=== PATIENT | female | born 1975 | race African-American/Black ===

== ENCOUNTER 2017-02-15 18:20 | Emergency (ER) | payer MEDICAID ==
[~2017-02-15] VITALS: Ht 162.6 cm; Wt 100.0 kg
[~2017-02-15 18:20] MED LIST: AMLO2.5T45; ASPI-1159 PO; PREN-88; VIT D
[2017-02-15] MEDS ORDERED: SODIUM CHLORIDE 0.9% 1,000 ML IV ONE (18:32)
[2017-02-15 19:15] LABS: BASOPHILS % 0.7 % (0.0-2.0); EOSINOPHILS % 1.2 % (0.0-5.0); HEMATOCRIT. 36.9 % (36.0-48.0); HEMOGLOBIN. 12.4 g/dL (12.0-16.0); LYMPHOCYTES % 38.7 % (20.0-50.0); MEAN CORPUSCULAR VOLUME 83.5 fL (81.0-99.0); MEAN PLATELET VOLUME 7.4 fl (7.4-10.4); MONOCYTES % 5.5 % (2.0-8.0); NEUTROPHILS % 53.9 % (40.0-76.0); PLATELET 303 x1000/uL (130-400); RED BLOOD CELL COUNT 4.41 mill/uL (4.2-5.4); RED CELL DISTRIBUTION WIDTH 13.5 % (11.6-14.6)
[2017-02-15 19:16] LABS: CHLORIDE 101 mEq/L (98-107)
[2017-02-15 19:22] LABS: CARBON DIOXIDE 29 mEq/L (21-32)
[2017-02-15 19:24] LABS: HCG SCREEN NEGATIVE
[2017-02-15] MEDS ORDERED: POTASSIUM CHLORIDE 20MEQ TABLET SR PO ONE (19:30)
[2017-02-15 21:27] VITALS: BP 117/73
== END 2017-02-15 21:32 | disposition home or self-care (01) ==
LOC: ER 18:22
DX: E87.6 Hypokalemia (principal); J45.909 Unspecified asthma, uncomplicated; I10 Essential (primary) hypertension; Z98.890 Other specified postprocedural states; Z79.82 Long term (current) use of aspirin
CPT/HCPCS: 36415; 80048; 84703; 85025; 93005; 96360; 99285; J7030; Z7610

== ENCOUNTER 2017-08-01 19:08 | Emergency (ER) | payer MEDICAID, OTHER ==
[~2017-08-01] VITALS: Ht 162.6 cm; Wt 95.0 kg
[2017-08-01] MEDS ORDERED: ALBU2.5V13 IH (19:15)
[2017-08-01] MEDS ORDERED: METHYLPREDNISOLONE SOD SUCC 125 MG/2 ML VIAL IV STA (20:44)
[2017-08-01] MEDS ORDERED: IPRATROPIUM BROMIDE (0.02%) 0.5MG/2.5ML NEB HHN STA (20:44)
[2017-08-01 21:01] LABS: BASOPHILS % 0.5 % (0.0-2.0); EOSINOPHILS % 1.3 % (0.0-5.0); HEMATOCRIT. 35.5 % (36.0-48.0); HEMOGLOBIN. 11.6 g/dL (12.0-16.0); LYMPHOCYTES % 45.1 % (20.0-50.0); MEAN CORPUSCULAR HEMOGLOBIN 27.6 pg (28.0-32.0); MEAN CORPUSCULAR VOLUME 84.5 fL (81.0-99.0); MEAN PLATELET VOLUME 6.8 fl (7.4-10.4); MONOCYTES % 5.8 % (2.0-8.0); NEUTROPHILS % 47.3 % (40.0-76.0); PLATELET 311 x1000/uL (130-400); RED CELL DISTRIBUTION WIDTH 13.7 % (11.6-14.6)
[2017-08-01 21:19] LABS: CARBON DIOXIDE 29 mEq/L (21-32); CHLORIDE 104 mEq/L (98-107); TROPONIN I < 0.02 ng/mL (0.00-0.04)
[2017-08-01 21:27] LABS: PROTHROMBIN TIME 10.1 sec (9.4-11.6)
[2017-08-01] MEDS: ALBUTEROL (0.083%) 2.5MG/3ML NEB HHN SCH ×3 (21:30→22:37)
[2017-08-02 00:50] VITALS: BP 136/81
== END 2017-08-02 01:00 | disposition home or self-care (01) ==
LOC: ER 19:08
DX: J45.901 Unspecified asthma with (acute) exacerbation (principal); R00.0 Tachycardia, unspecified; I10 Essential (primary) hypertension; Z79.82 Long term (current) use of aspirin; Z98.890 Other specified postprocedural states
CPT/HCPCS: 36415; 71010; 80053; 83880; 84484; 85025; 85610; 93005; 94640; 96374; 99285; J2930; J7611; Z7610

== ENCOUNTER 2017-11-07 08:37 | Emergency (ER) | payer MEDICAID ==
[~2017-11-07] VITALS: Ht 160 cm; Wt 98.0 kg
[~2017-11-07 08:37] MED LIST changes: +ALBU2.5V13 IH
[2017-11-07] MEDS ORDERED: ALBUTEROL (0.083%) 2.5MG/3ML NEB HHN STA (12:03)
[2017-11-07] MEDS ORDERED: IPRATROPIUM BROMIDE (0.02%) 0.5MG/2.5ML NEB HHN STA (12:03)
[2017-11-07 13:50] VITALS: BP 119/69
== END 2017-11-07 13:50 | disposition home or self-care (01) ==
LOC: ER 08:47
DX: H66.93 Otitis media, unspecified, bilateral (principal); J45.909 Unspecified asthma, uncomplicated; I10 Essential (primary) hypertension; Z79.82 Long term (current) use of aspirin; R05 Cough
CPT/HCPCS: 71045; 81025; 87804; 94640; 99285; J7611

== ENCOUNTER 2018-06-28 10:19 | Emergency (ER) | payer MEDICAID ==
[~2018-06-28] VITALS: Ht 167.6 cm; Wt 92.0 kg
[2018-06-28 11:43] LABS: BASOPHILS % 0.3 % (0.0-2.0); EOSINOPHILS % 0.9 % (0.0-5.0); HEMOGLOBIN. 12.7 g/dL (12.0-16.0); MEAN CORPUSCULAR HEMOGLOBIN 28.3 pg (28.0-32.0); MEAN CORPUSCULAR VOLUME 84.8 fL (81.0-99.0); MEAN PLATELET VOLUME 7.3 fl (7.4-10.4); MONOCYTES % 3.9 % (2.0-8.0); NEUTROPHILS % 51.9 % (40.0-76.0); PLATELET 352 x1000/uL (130-400); RED BLOOD CELL COUNT 4.48 mill/uL (4.2-5.4); RED CELL DISTRIBUTION WIDTH 13.8 % (11.6-14.6)
[2018-06-28 11:52] LABS: CHLORIDE 102 mEq/L (98-107)
[2018-06-28] MEDS ORDERED: POTASSIUM CHLORIDE 20MEQ TABLET SR PO SCH (12:15)
[2018-06-28] MEDS ORDERED: POTASSIUM CHLORIDE INJ 40 MEQ in DEXT 5% WATER 250 ML IV SCH (12:30)
[2018-06-28] MEDS ORDERED: SODIUM CHLORIDE 0.9% 500 ML IV ONE (12:57)
[2018-06-28] MEDS ORDERED: POTASSIUM CHLORIDE 20MEQ TABLET SR PO ONE (14:00)
[2018-06-28 17:45] VITALS: BP 128/73
== END 2018-06-28 17:58 | disposition home or self-care (01) ==
LOC: ER 10:19
DX: R07.89 Other chest pain (principal); E87.6 Hypokalemia; I10 Essential (primary) hypertension
CPT/HCPCS: 36415; 71045; 80053; 83880; 84484; 85025; 93005; 96365; 96366; 99285; J3480; J7030; J7040; J7060

== ENCOUNTER 2018-11-11 08:36 | Emergency (ER) | payer MEDICAID ==
[~2018-11-11] VITALS: Ht 162.6 cm; Wt 95.0 kg
[2018-11-11] MEDS ORDERED: LORATADINE 10MG TABLET PO SCH (09:45)
[2018-11-11] MEDS ORDERED: NAPROXEN 375MG TABLET PO ONE (10:00)
[2018-11-11] MEDS ORDERED: ACETAMINOPHEN 325MG TABLET PO ONE (10:15)
[2018-11-11 10:21] VITALS: BP 152/90
== END 2018-11-11 10:25 | disposition home or self-care (01) ==
LOC: ER 08:36
DX: S40.862A Insect bite (nonvenomous) of left upper arm, initial encounter (principal); L03.114 Cellulitis of left upper limb; W57.XXXA Bitten or stung by nonvenomous insect and other nonvenomous arthropods, initial encounter; Y93.89 Activity, other specified; Y92.89 Other specified places as the place of occurrence of the external cause; R03.0 Elevated blood-pressure reading, without diagnosis of hypertension
CPT/HCPCS: 81025; 99283

== ENCOUNTER 2019-05-13 09:38 | Emergency (ER) | payer MEDICAID ==
[~2019-05-13] VITALS: Ht 162.6 cm; Wt 100.0 kg
[~2019-05-13 09:38] MED LIST changes: -ASPI-1159 PO; +ASPI-1393 PO
[2019-05-13] MEDS ORDERED: IPRATROPIUM BROMIDE (0.02%) 0.5MG/2.5ML NEB HHN STA (10:30)
[2019-05-13] MEDS ORDERED: ALBUTEROL (0.083%) 2.5MG/3ML NEB HHN STA (10:30)
[2019-05-13] MEDS ORDERED: METHYLPREDNISOLONE SOD SUCC 125 MG/2 ML VIAL IV STA (10:30)
[2019-05-13] MEDS ORDERED: SODIUM CHLORIDE 0.9% 1,000 ML IV ONE (10:30)
[2019-05-13 10:55] LABS: BASOPHILS % 0.4 % (0.0-2.0); EOSINOPHILS % 1.2 % (0.0-5.0); HEMATOCRIT. 36.7 % (36.0-48.0); HEMOGLOBIN. 12.2 g/dL (12.0-16.0); LYMPHOCYTES % 42.2 % (20.0-50.0); MEAN CORPUSCULAR HEMOGLOBIN 28.2 pg (28.0-32.0); MEAN CORPUSCULAR VOLUME 84.4 fL (81.0-99.0); MEAN PLATELET VOLUME 7.2 fl (7.4-10.4); MONOCYTES % 5.7 % (2.0-8.0); NEUTROPHILS % 50.5 % (40.0-76.0); PLATELET 354 x1000/uL (130-400); RED BLOOD CELL COUNT 4.35 mill/uL (4.2-5.4); RED CELL DISTRIBUTION WIDTH 13.5 % (11.6-14.6)
[2019-05-13 10:58] LABS: CHLORIDE 103 mEq/L (98-107)
[2019-05-13 12:21] VITALS: BP 125/67
== END 2019-05-13 12:35 | disposition home or self-care (01) ==
LOC: ER 09:38
DX: J45.901 Unspecified asthma with (acute) exacerbation (principal); I10 Essential (primary) hypertension; Z79.82 Long term (current) use of aspirin; Z79.899 Other long term (current) drug therapy
CPT/HCPCS: 36415; 71045; 80048; 83880; 84484; 85025; 93005; 94640; 96374; 99284; J2930; J7030; J7611; Z7610

== ENCOUNTER 2019-05-24 12:14 | Emergency (ER) | payer MEDICAID ==
[~2019-05-24] VITALS: Ht 172.7 cm; Wt 105.0 kg
[2019-05-24 14:35] VITALS: BP 148/89
== END 2019-05-24 20:36 | disposition home or self-care (01) ==
LOC: ER 12:14
DX: S90.561A Insect bite (nonvenomous), right ankle, initial encounter (principal); I10 Essential (primary) hypertension; Z79.82 Long term (current) use of aspirin; Z79.899 Other long term (current) drug therapy; W57.XXXA Bitten or stung by nonvenomous insect and other nonvenomous arthropods, initial encounter; Y93.89 Activity, other specified; Y92.89 Other specified places as the place of occurrence of the external cause; Y99.8 Other external cause status
CPT/HCPCS: 99282

== ENCOUNTER 2020-05-13 16:22 | Emergency (ER) | payer MEDICAID ==
[~2020-05-13] VITALS: Ht 162.6 cm; Wt 103.0 kg
[~2020-05-13 16:22] MED LIST changes: -ASPI-1393 PO; +ASPI-1497 PO
[2020-05-13 16:24] VITALS: BP 171/99
== END 2020-05-13 16:58 | disposition home or self-care (01) ==
LOC: ER 16:22
DX: S90.561A Insect bite (nonvenomous), right ankle, initial encounter (principal); R21 Rash and other nonspecific skin eruption; I10 Essential (primary) hypertension; Z79.899 Other long term (current) drug therapy; W57.XXXA Bitten or stung by nonvenomous insect and other nonvenomous arthropods, initial encounter; Y93.89 Activity, other specified; Y92.89 Other specified places as the place of occurrence of the external cause; Y99.8 Other external cause status
CPT/HCPCS: 99281; 99283

== ENCOUNTER 2020-06-03 09:44 | Emergency (ER) | payer MEDICAID ==
[~2020-06-03] VITALS: Ht 162.6 cm; Wt 103.0 kg
[2020-06-03 09:59] VITALS: BP 160/98
[2020-06-03] MEDS ORDERED: LIDOCAINE HCL/PF 1% 10 MG/ML 5ML VIAL IJ ONE (10:45)
[2020-06-03] MEDS ORDERED: BACITRACIN ZINC OINT UDPKT TOP ONE (10:45)
[2020-06-03] MEDS ORDERED: IBUPROFEN 600MG TABLET PO ONE (11:45)
== END 2020-06-03 11:50 | disposition home or self-care (01) ==
LOC: ER 10:20
DX: S31.41XA Laceration without foreign body of vagina and vulva, initial encounter (principal); X78.8XXA Intentional self-harm by other sharp object, initial encounter; Y93.89 Activity, other specified; Y92.89 Other specified places as the place of occurrence of the external cause; Y99.8 Other external cause status; I10 Essential (primary) hypertension; Z98.890 Other specified postprocedural states; Z79.82 Long term (current) use of aspirin; Z79.899 Other long term (current) drug therapy
CPT/HCPCS: 99283; J3490

== ENCOUNTER 2021-05-22 09:50 | Emergency (ER) | payer MEDICAID ==
[~2021-05-22] VITALS: Ht 162.6 cm; Wt 105.0 kg
[2021-05-22] MEDS ORDERED: AMOX-424 MT (10:26)
[2021-05-22 10:45] VITALS: BP 176/93
== END 2021-05-22 10:45 | disposition home or self-care (01) ==
LOC: ER 09:50
DX: H66.93 Otitis media, unspecified, bilateral (principal); I10 Essential (primary) hypertension
CPT/HCPCS: 99281; 99283

== ENCOUNTER 2021-08-10 09:18 | Emergency (ER) | payer MEDICAID ==
[~2021-08-10] VITALS: Ht 162.6 cm; Wt 105.0 kg
[~2021-08-10 09:18] MED LIST changes: +AMOX-424 MT
[2021-08-10 09:20] VITALS: BP 166/93
[2021-08-10] MEDS ORDERED: LOSA25TA26 PO (09:23)
[2021-08-10] MEDS ORDERED: ACETAMINOPHEN 325MG TABLET PO ONE (10:00)
[2021-08-10] MEDS ORDERED: IBUPROFEN 400MG TABLET PO ONE (10:00)
[2021-08-10] MEDS ORDERED: IBUP-2028 MT (10:08)
[2021-08-10] MEDS ORDERED: AMOX-424 MT (10:08)
[2021-08-10] MEDS ORDERED: TOPUD PO (10:08)
== END 2021-08-10 10:20 | disposition home or self-care (01) ==
LOC: ER 09:18
DX: H66.91 Otitis media, unspecified, right ear (principal); J02.9 Acute pharyngitis, unspecified; I10 Essential (primary) hypertension; J45.909 Unspecified asthma, uncomplicated
CPT/HCPCS: 99283

== ENCOUNTER 2022-05-29 08:20 | Emergency (ER) | payer MEDICAID ==
[~2022-05-29] VITALS: Ht 162.6 cm; Wt 104.0 kg
[~2022-05-29 08:20] MED LIST changes: +IBUP-2028 MT; +LOSA25TA26 PO; +TOPUD PO
[2022-05-29 08:27] VITALS: BP 169/100
[2022-05-29] MEDS ORDERED: CEPH500T PO (08:55)
[2022-05-29] MEDS ORDERED: SULF1TAB48 PO (08:55)
== END 2022-05-29 09:06 | disposition home or self-care (01) ==
LOC: ER 08:20
DX: S70.362A Insect bite (nonvenomous), left thigh, initial encounter (principal); L03.116 Cellulitis of left lower limb; I10 Essential (primary) hypertension; W57.XXXA Bitten or stung by nonvenomous insect and other nonvenomous arthropods, initial encounter; Y93.89 Activity, other specified; Y92.89 Other specified places as the place of occurrence of the external cause
CPT/HCPCS: 99281; 99283

== ENCOUNTER 2024-06-12 10:07 | Emergency (ER) | payer OTHER ==
[~2024-06-12] VITALS: Ht 162.6 cm; Wt 100.0 kg
[~2024-06-12 10:07] MED LIST changes: +CEPH500C2 MT; +CEPH500T PO; +SULF1TAB48 MT; +SULF1TAB48 PO
[2024-06-12 10:23] VITALS: BP 164/96; RESP 16; TEMP 98.3; O2SAT 98
[2024-06-12 10:25] VITALS: PULSE 89; O2SAT 99
[2024-06-12] MEDS ORDERED: AMOX1TAB16 MT (12:46)
== END 2024-06-12 13:17 | disposition home or self-care (01) ==
LOC: ER 10:07
DX: H66.92 Otitis media, unspecified, left ear (principal); I10 Essential (primary) hypertension; J45.909 Unspecified asthma, uncomplicated; Z98.890 Other specified postprocedural states; Z79.899 Other long term (current) drug therapy
CPT/HCPCS: 99283